=== PATIENT | male | born 1975 | race Caucasian/White ===

== ENCOUNTER 2020-12-20 08:03 | Emergency (ER) | payer OTHER, SELFPAY ==
[2020-12-20 08:12] VITALS: BP 125/80; PULSE 63; RESP 16; TEMP 36.6; O2SAT 100
--- NOTE | 2020-12-20 08:30 | PC.NURSE ---
PT LEFT AT THIS TIME NO PROVIDER TO SEE HIM CURRENTLY.
--- NOTE | 2020-12-20 09:20 | PC.NURSE ---
PT HAS RETURNED TO BE SEEN BY PROVIDER
--- NOTE | 2020-12-20 09:40 | ED.LOWEXIN ---
HPI - Extremity Injury (Lower) General Chief Complaint: Extremity Injury, Lower Stated Complaint: possible gout Source: patient, RN notes reviewed and police History of Present Illness HPI Narrative: This is a 45-year-old male who presented to urgent care today with left lower leg swelling that he has had for approximately . Patient notes that he includes a specific food in his diet which is provided has worn him in the past that it could cause gout. Patient notes that within the 6 weeks the swelling and stiffness has been on and off he notes that he is having in his left foot particularly his left big toe and then migrates to his left knee. He describes the pain as stiffness and occasional sharp pain. Patient will be treated for gout he was also informed that he will need to follow-up with his primary care physician if his condition does not improve to rule out a DVT also to get a uric acid test. The patient denies SOB, CP, palpitation, extremity numbness, lightheadedness, dizziness, constipation, diarrhea, chills, no neurovascular deficiencies ,pulses are palpable full range of motion's to the affected extremity or fever. Related Data Allergies Allergy/AdvReac Type Severity Reaction Status Date / Time No Known Allergies Allergy Verified 12/20/20 08:33 Review of Systems Review of Systems: A 14 organ system Review of Systems was performed and pertinent positives included in the HPI, otherwise remaining ROS is negative. [facility] Family History Family History (Updated 12/20/20 @ 09:44 by GENEVA ChapaP-C) Other Family history non-contributory Exam Narrative: GENERAL: This is a well-nourished, well-developed patient, in no apparent distress. HEAD: normocephalic, atraumatic. EYES: PERRL. Sclera clear/white. Vision is grossly intact. EARS: External ears normal, auditory canals clear and without drainage, TMs normal without perforation. Hearing grossly intact. NOSE: External nose normal with no obvious nasal discharge, nares without redness, no rhinorrhea. THROAT: Mucous membranes moist, posterior pharynx clear. NECK: Neck supple, non-tender without lymphadenopathy, masses or thyromegaly. CARDIOVASCULAR: Regular rate and rhythm without murmurs, gallops, or rubs. RESPIRATORY: Clear to auscultation. Breath sounds equal bilaterally. No wheezes, rales, or rhonchi. GASTROINTESTINAL: Abdomen soft, non-tender, nondistended. Bowel sounds are active. No hepato-splenomegaly, or palpable masses. No guarding. SKIN: warm, intact with no suspicious lesions or rash, good texture and turgor. NEURO: awake, alert, and oriented to person, place and time. There were no obvious focal neurologic abnormalities. Steady gait EXTREMITIES: Left lower extremity edema to the left great toe and knee area with warm, no neurovascular deficiency pulses palpable, full range of motion with pain to that left knee BACK: Nontender without deformity or crepitance. No flank tenderness. Course Course Emergency Course: Patient will be treated for gout, with prednisone and allopurinol. Patient instructed to visit his primary care physician for further testing and if his condition he will need to follow-up with ultrasound to rule out a DVT. Patient has agreed Vital Signs Vital signs: Vital Signs Temperature 97.8 F 12/20/20 08:12 Pulse Rate 63 12/20/20 08:12 Respiratory Rate 16 12/20/20 08:12 Blood Pressure 125/80 12/20/20 08:12 Pulse Oximetry 100 12/20/20 08:12 Temperature 97.8 F 12/20/20 08:12 Pulse Rate 63 12/20/20 08:12 Respiratory Rate 16 12/20/20 08:12 Blood Pressure 125/80 12/20/20 08:12 Pulse Oximetry 100 12/20/20 08:12 MDM - Extremity Injury (Lower) Differential Diagnosis Differential diagnosis: Likely other (Gout versus cellulitis versus DVT) Discharge Plan Discharge Clinical Impression: Gout Qualifiers: Gout site: foot Gout etiology: unspecified cause Chronicity: acute Laterality: left Qualified Code(s): M10.9
== END 2020-12-20 09:40 | disposition home or self-care (01) ==
PROVIDERS: Emergency Provider Nurse Practitioner
DX: M10.9 Gout, unspecified (principal)
CPT/HCPCS: 99213; G0463

== ENCOUNTER 2020-12-30 14:17 | Outpatient (CLI) | payer OTHER, SELFPAY ==
--- NOTE | ~2020-12-30 | XR_ITS ---
XR cervical spine 4-5V 12/30/2020 15:34 Indication: Finger tingling. Neck pain. Procedure: 5 views of the cervical spine Comparison: No prior studies for comparison. Findings: Normal cervical alignment. Vertebral body and disc heights are preserved. No fracture, subl uxation or dislocation. No prevertebral soft tissue abnormality. Odontoid process within normal limit s. Impression: 1: No significant abnormality of the cervical spine. Reviewed, dictated and finalized at location A. H DIAL PRINTER Impression: 1: No significant abnormality of the cervical spine.
--- NOTE | ~2020-12-30 | XR_ITS ---
EXAMINATION: XR knee LT min 4V DATE: 12/30/2020 15:35 INDICATION: Left knee pain. TECHNIQUE: 4 views of left knee were obtained. COMPARISON: None. FINDINGS: Bone alignment is normal. No fracture. There is mild tricompartmental osteoarthritis charac terized by tiny marginal osteophytes. No joint space narrowing. No knee joint effusion. IMPRESSION: 1. Mild left knee osteoarthritis. Reviewed, dictated and finalized at location B. BILITATION CENTER MANAGER
--- NOTE | ~2020-12-30 | XR_ITS ---
EXAMINATION: XR chest 2V 12/30/2020 15:34 INDICATION: History of smoking PROCEDURE: 2 view chest COMPARISON: No prior studies for comparison. FINDINGS: The lungs are clear. The cardiomediastinal silhouette is within normal limits. There are no pleural effusions. There is no pneumothorax suspected. IMPRESSION: 1: NO ACUTE CARDIOPULMONARY DISEASE. Reviewed, dictated and finalized at location A. RAM CLERK
--- NOTE | ~2020-12-30 | US_ITS ---
EXAMINATION: US joint non vasc ltd LT DATE: 12/30/2020 15:17 INDICATION: Posterior left knee pain TECHNIQUE: Multiple grayscale and Doppler ultrasound images of the popliteal fossa of the left knee w ere obtained. COMPARISON: None FINDINGS: 4.1 x 0.7 x 1.2 cm anechoic Levin's cyst at the left popliteal fossa. There is an additional smaller 2.3 x 1.2 x 0.6 cm more cephalad ganglion cyst at the popliteal fossa and typical location deep to th e semimembranosus tendon. No other masses or fluid collections identified. IMPRESSION: 1. Small to moderate-sized Levin's cyst and second smaller more cephalad ganglion cyst at the poplite al fossa. Reviewed, dictated and finalized at location A. IT CONTROLLER IMPRESSION: 1. Small to moderate-sized Levin's cyst and second smaller more cephalad gangli on cyst at the popliteal fossa.
== END 2020-12-30 14:18 | disposition home or self-care (01) ==
LOC: ANHIMG 14:20
PROVIDERS: PCP Emergency Medicine; Visit Provider Emergency Medicine
DX: M25.562 Pain in left knee (principal); R20.2 Paresthesia of skin; M17.12 Unilateral primary osteoarthritis, left knee; M71.22 Synovial cyst of popliteal space [Baker], left knee; M67.462 Ganglion, left knee
CPT/HCPCS: 71046; 72050; 73564; 76882

== ENCOUNTER 2021-01-22 10:59 | Outpatient (CLI) | payer OTHER, SELFPAY ==
--- NOTE | ~2021-01-22 | US_ITS ---
EXAMINATION: US venous doppler [facility] EXAM DATE: 01/22/2021 11:41 INDICATION: Left leg pain. TECHNIQUE: Multiple grayscale, color flow and Doppler images of the left lower extremity deep venous system were obtained and reviewed. There is no prior study for comparison. FINDINGS: The left common femoral, femoral and profunda veins demonstrate normal color flow, respirat ory variation, augmentation and compressibility. Compressibility, color flow confirmed within the le ft popliteal, posterior tibial, peroneal, and greater saphenous veins. IMPRESSION: 1. No left lower extremity deep venous thrombosis. Reviewed, dictated and finalized at location B. IT RELATIONSHIP MANAGER
== END 2021-01-22 11:00 | disposition home or self-care (01) ==
LOC: ANHIMG 11:00
PROVIDERS: PCP Emergency Medicine; Visit Provider Emergency Medicine
DX: M79.662 Pain in left lower leg (principal)
CPT/HCPCS: 93971

== ENCOUNTER 2021-03-05 08:05 | Outpatient (CLI) | payer OTHER, SELFPAY ==
--- NOTE | ~2021-03-05 | MR_ITS ---
EXAMINATION: MR knee LT wo con DATE: 03/05/2021 09:26 INDICATION: Left knee pain. TECHNIQUE: Magnetic resonance imaging (MRI) of the left knee was performed without intravenous contra st. Sequences included axial PD-weighted FS FSE, coronal PD-weighted FSE and PD-weighted FS FSE, sagi ttal PD-weighted FSE, and sagittal T2-weighted FS FSE. COMPARISON: Left knee radiographs 01/20/2021 FINDINGS: Medial compartment: Medial meniscus is normal. Tibial cartilage is normal. There is cartilage surface irregularity of fem oral condyle. Lateral compartment: Lateral meniscus is normal. Tibial cartilage is normal. The femoral cartilage is normal. Patellofemoral compartment: There is deep cartilage fissuring of patellar medial facet. Trochlear cartilage is normal. Ligaments and tendons: Anterior cruciate ligament is normal. There is a partial tear of posterior cruciate ligament characte rized by thickening and increased signal intensity. There is a partial tear of medial collateral liga ment at its proximal attachment. There is edema-like marrow signal intensity in medial femoral condyl e at the attachment of the medial collateral ligament. Lateral collateral ligament complex is normal. Patellar tendon is normal. Fluid: There is a moderate-sized knee joint effusion. There is a small Levin's cyst. There is mild superfici al infrapatellar bursitis. Bones/Other: There are benign bone islands in the distal femur and proximal fibula. IMPRESSION: 1. Moderate chondrosis of patellofemoral compartment and mild chondrosis of medial compartment. 2. Partial tear of medial collateral ligament. 3. Partial tear of posterior cruciate ligament. 4. Moderate-sized knee joint effusion. 5. Small Levin's cyst. Reviewed, dictated and finalized at location A. HT LOSS CONSULTANT IMPRESSION: 1. Moderate chondrosis of patellofemoral compartment and mild chondrosis of med ial compartment. 2. Partial tear of medial collateral ligament. 3. Partial tear of posterior cruciate ligament. 4. Moderate-sized knee joint effusion. 5. Small Levin's cyst.
== END 2021-03-05 08:06 | disposition home or self-care (01) ==
LOC: ANHIMG 08:10
PROVIDERS: PCP Emergency Medicine; Visit Provider Orthopaedic Surgery
DX: M71.22 Synovial cyst of popliteal space [Baker], left knee (principal); M25.462 Effusion, left knee; S83.522A Sprain of posterior cruciate ligament of left knee, initial encounter; S83.412A Sprain of medial collateral ligament of left knee, initial encounter
CPT/HCPCS: 73721

== ENCOUNTER 2024-04-17 12:51 | Outpatient (CLI) | payer OTHER, SELFPAY ==
--- NOTE | ~2024-04-17 | XR_ITS ---
XR abdomen/kub 1V Ordering provider: Mauri Varela MD History: . hematuria . Comparison: None. FINDINGS: BOWEL: Nonobstructive bowel gas pattern. ORGANOMEGALY: None. SIGNIFICANT PATHOLOGIC CALCIFICATIONS: None. OTHER: No free air is seen under the diaphragm. Bilateral hip mild osteoarthritic changes. IMPRESSION: NO ACUTE ABDOMINAL FINDINGS. Reviewed, dictated and finalized at location A.
[2024-04-17 13:25] LABS: Hematocrit 42.6 % (42.0-52.0); Hemoglobin 14.5 g/dL (14.0-18.0); Mean Corpuscular Hemoglobin 30.2 pg (26-34); Mean Corpuscular Volume 88.8 fl (80-100); Mean Platelet Volume 9.7 fl (7.4-10.4); Platelet Count Result 350 k/mm3 (150-375); Red Cell Distribution Width 11.8 % (11.5-14.5); White Blood Count 8.3 K/mm3 (4.5-10.0)
[2024-04-17 13:26] LABS: Add Urine Microscopic? YES; Appearance Urine Clear (Clear); Bilirubin Urine Negative (Negative); Blood Urine Negative (Negative); Color Urine Dark Yellow (Yellow); Glucose Urine UA Negative (Negative); Ketones Urine Trace mg/dL (Negative); Leukocyte Esterase Ur Negative LEU/UL (Negative); Nitrate Urine Negative (Negative); Protein Urine Negative (Negative); Specific Grav Ur 1.027 (1.001-1.035); Urobilinogen Urine 0.2 mg/dL (<2.0); pH Urine 5.5 (5.0-9.0)
[2024-04-17 13:39] LABS: Alanine Aminotransferase 45 U/L (6-50); Albumin Level 4.4 g/dL (3.5-5.1); Alkaline Phosphatase 81 U/L (38-126); Anion Gap 10 mmol/L (4-12); Aspartate Amino Transferase 35 U/L (17-59); Bilirubin,Total 0.6 mg/dL (0.2-1.3); Blood Urea Nitrogen 16 mg/dL (9-20); Calcium 9.6 mg/dL (8.4-10.2); Carbon Dioxide 24 mmol/L (22-30); Chloride 105 mmol/L (98-107); Cholesterol 202 mg/dL (0-200); Estimated Glomerular Filt Rate > 60; Glucose 97 mg/dL (65-110); HDL Direct 33 mg/dL; Potassium 4.4 mmol/L (3.4-5.0); Sodium 139 mmol/L (137-145); Triglycerides 180 mg/dL (<150)
[2024-04-17 13:51] LABS: LDL Cholesterol Direct 114 mg/dL
[2024-04-17 13:59] LABS: Free T4 Free Thyroxine 1.04 ng/dL (0.78-2.19); Vitamin D 25 Hydroxy 22.9 ng/mL
[2024-04-17 14:08] LABS: Prostate Specific Antigen 0.7 ng/mL (< OR = 4.0)
[2024-04-17 14:14] LABS: Erythrocyte Sedimentation Rate 52 mm/hr (0-20)
--- OUTSIDE RECORDS SUMMARY | 2024-04-17 14:48 | XMS_ITS | Referral Summary ---
Author Organization [facility] Address [address] [place] [address] Care Team Providers Care Staple Cutter Name Role Phone Mauri Varela MD Primary Care Provider [phone] Source Comments [facility],non-owned Affiliates and Associated Physician Practices is amultiple site organization consisting of ambulatory clinics and hospital sitesin [place], [place] and [place]. This disclosure is being madepursuant to the Care Everywhere program and may not contain all information available regarding this patient. Last updated 17.[facility] Encounters Date Type Department Care Team Description 03/03/2024 Travel 03/03/2024 9:10 AM RIG MECHANIC Office Visit [facility]ermatology [facility] [facility] [place] [phone] Xiomy Dey MD Actinic keratosis (Primary Dx); Lentigines; Multiple benign melanocytic nevi of upper and lower extremities and trunk; History of squamous cell carcinoma; Acne vulgaris; Other seborrheic dermatitis from Last 3 Months Allergies No known active allergies Medications * Be aware that medications may not be up to date on this document. Alwaysverify current medications with the patient. Medication Sig Dispensed Refills Start Date End Date Status fenofibrate (TRICOR) 145 MG tablet Take 1 (one) tablet by mouth once daily 03/17/2021 Active allopurinol (Zyloprim) 100 MG tablet Take 1 (one) tablet by mouth once daily 04/03/2022 Active clindamycin (Cleocin) 1 % gelIndications:Acne vulgaris Apply daily to face 60 g 5 03/05/2023 Active Additional Information Patient not taking.Reported on 03/03/2024 fluorouracil (Efudex) 5 % creamIndications:Act inic keratosis Apply to affected area twice daily for two weeks. 40 g 03/03/2024 Active Active Problems No known active problems Social History Tobacco Use Types Packs/Day Years Used Date Smoking Tobacco: Former Cigarettes Smokeless Tobacco: Never Tobacco Cessation:Counseling Given: Not Answered Sex and Gender Information Value Date Recorded Sex Assigned at Not on file Gender Identity Not on file Sexual Orientation Not on file Last Filed Vital Signs Vital Sign Reading Time Taken Comments Blood Pressure 118/86 05/16/2021 10:14 AM CDT Pulse 72 05/16/2021 10:14 AM CDT Temperature - - Respiratory Rate - - Oxygen Saturation - - Inhaled Oxygen Concentration - - Weight 104.3 kg (230 lb) 05/16/2021 8:12 AM CDT Height 172.7 cm (5' 8 ) 05/16/2021 8:12 AM CDT Body Mass Index 34.97 05/16/2021 8:12 AM CDT Plan of Treatment Upcoming Encounters Date Type Department Care Team (Late st Contact Info) Description 03/09/2025 9:00 AM RIG MECHANIC Office Visit [facility] - Dermatology [address] [place] [address], [facility] [place] [phone] Xiomy Dey MD [address] [place] [address] [address] [place] [address] Procedures Procedure Name Priority Date/Time Associated Diagnosis Comments [place] DESTROY PREMALIG LESION, 2-14 Routine 03/03/2024 9:46 AM RIG MECHANIC Actinic keratosis [place] DESTROY PREMALIG LESION, 1ST LESION Routine 03/03/2024 9:46 AM RIG MECHANIC Actinic keratosis from Last 3 Months Results * [place] DESTROY PREMALIG LESION, 1ST LESION, [place] DESTROY PREMALIG LESION, 2-14 (03/03/2024 9:46 AM RIG MECHANIC) Xiomy Navarrete MD - 03/03/2024 9:46 AM RIG MECHANIC Mary Jones MD 03/03/2024 9:47 AM Diagnosis and treatment options discussed, addressing the benefit and risks of each. Pt wish to proceed with cryotherapy. Liquid Nitrogen was applied to 4 lesions on (vertex scalp x2, left sideburn x1 right sideburn x1) for 7-10s each. Number of cycles: 1. Wound care reviewed. Mary Jones M.D. [facility] [place] Dermatology Resident Xiomy Dey MD PROCEDURE/RIMMA R SURGICAL ORDERABLES from Last 3 Months Care Teams Staple Cutter Relationship Specialty Start Date End Date Mauri Varela MD [address] [facility] [address] [place] [address] PCP - General 04/11/21
--- OUTSIDE RECORDS SUMMARY | 2024-04-17 14:48 | XMS_ITS | Encounter Summary ---
Author Organization [facility] Address [address] [place] [address] Care Team Providers Care Group Home Worker Name Role Phone Mauri Varela MD Primary Care Provider [phone] Reason for Visit * Reason Onset Date Comments Appointment 02/17/2023 Encounter Details Date Type Department Care Team (Late st Contact Info) Description 02/17/2023 Telephone [facility] - Centralized Scheduling [address] [place] [phone] Xiomy Dey MD [facility] [place] [phone] Appointment Social History Tobacco Use Types Packs/Day Years Used Date Smoking Tobacco: Former Cigarettes Smokeless Tobacco: Never Sex and Gender Information Value Date Recorded Sex Assigned at Not on file Gender Identity Not on file Sexual Orientation Not on file documented as of this encounter Miscellaneous Notes * Telephone Encounter - Dayana Nicolas - 02/19/2023 12:[address] Dey opened a spot for patient, who accepted this appointment: Wednesday03/05/23 at 8:20 TLINE JOINER * Telephone Encounter - Karey Remy - 02/17/2023 8:11 AM CST Patient has a growth on his forehead and is wanting a sooner appointment than his April appointment TLINE JOINER documented in this encounter Plan of Treatment Upcoming Encounters Date Type Department Care Team (Late st Contact Info) Description 03/09/2025 9:00 AM WAISTLINE JOINER Office Visit [facility] - Dermatology [address] [place] [address], [place] [address] Xiomy Dye MD [address] [place] [address] [address] [place] [address] documented as of this encounter Visit Diagnoses Not on filedocumented in this encounter Care Teams Group Home Worker Relationship Specialty Start Date End Date Mauri Varela MD [address] [facility] [address] [place] [address] PCP - General 04/11/21 documented as of this encounter
--- OUTSIDE RECORDS SUMMARY | 2024-04-17 14:48 | XMS_ITS | Patient Health Summary ---
Author Organization [facility] Address [address] [place] [address] Care Team Providers Care Set Painter Name Role Phone Mauri Varela MD Primary Care Provider [phone] Note from [facility],non-owned Affiliates and Associated Physician Practices is amultiple site organization consisting of ambulatory clinics and hospital sitesin [place], [place] and [place]. This disclosure is being madepursuant to the Care Everywhere program and may not contain all information available regarding this patient. Last updated 17.[facility] Allergies No known active allergies Medications * Be aware that medications may not be up to date on this document. Alwaysverify current medications with the patient. * fenofibrate (TRICOR) 145 MG tablet(Started 03/17/2021) Take 1 (one) tablet by mouth once daily * allopurinol (Zyloprim) 100 MG tablet(Started 04/03/2022) Take 1 (one) tablet by mouth once daily * clindamycin (Cleocin) 1 % gel(Started 03/05/2023) Apply daily to face 5 refills by 03/04/2024 * fluorouracil (Efudex) 5 % cream(Started 03/03/2024) Apply to affected area twice daily for two weeks. Active Problems No known active problems Social [...] Mass Index 34.97 05/16/2021 8:12 AM CDT Procedures * VA DESTROY PREMALIG LESION, 2-14(Performed 03/03/2024) Performed for Actinic keratosis * VA DESTROY PREMALIG LESION, 1ST LESION(Performed 03/03/2024) Performed for Actinic keratosis * VA DESTRUCT BENIGN LESION, 1-14(Performed 03/05/2023) Performed for Seborrheic keratoses, inflamed * VA DESTROY PREMALIG LESION, 2-14(Performed 10/23/2022) Performed for Actinic keratosis * VA DESTROY PREMALIG LESION, 1ST LESION(Performed 04/17/2022) Performed for Actinic keratosis * VA DESTROY PREMALIG LESION, 2-14(Performed 04/17/2022) Performed for Actinic keratosis * VA DESTRUCT BENIGN LESION, 1-14(Performed 2021) Performed for Inflamed seborrheic keratosis * VA DESTROY PREMALIG LESION, 1ST LESION(Performed 2021) Performed for Actinic keratosis * VA CHMSRG MOHS MG TQ H/N/H/F/G 1ST STAG 5 BLOC(Performed 05/16/2021) 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 * VA DESTROY PREMALIG LESION, 1ST LESION(Performed 04/16/2021) Performed for Actinic keratosis * VA TANGNTL BX SKIN SINGLE LES(Performed 04/16/2021) Performed for Neoplasm of uncertain behavior of skin * DERMATOPATHOLOGY(Performed 04/16/2021) Performed for Neoplasm of uncertain behavior of skin Results * VA DESTROY PREMALIG LESION, 1ST LESION, VA DESTROY PREMALIG LESION, 2-14 (03/03/2024 9:46 AM PHYSICIAN OFFICE SPECIALIST) Xiomy Navarrete MD - 03/03/2024 9:46 AM PHYSICIAN OFFICE SPECIALIST Mary Jones MD 03/03/2024 9:47 AM Diagnosis and treatment options discussed, addressing the benefit and risks of each. Pt wish to proceed with cryotherapy. Liquid Nitrogen was applied to 4 lesions on (vertex scalp x2, left sideburn x1 right sideburn x1) for 7-10s each. Number of cycles: 1. Wound care reviewed. Mary Jones M.D. [facility] Dermatology Resident Xiomy Dey MD PROCEDURE/RIMMA R SURGICAL ORDERABLES * VA DESTRUCT BENIGN LESION, 1-14 (03/05/2023 9:11 AM PHYSICIAN OFFICE SPECIALIST) Xiomy Navarrete MD - 03/05/2023 9:11 AM PHYSICIAN OFFICE SPECIALIST Yi Dyer MD 03/05/2023 9:11 AM Diagnosis and treatment options discussed, addressing the benefit and risks of each. Pt wish to proceed with cryotherapy. Liquid Nitrogen was applied to 1 lesion on R sabianism for 7-10s each. Number of cycles: 1. Wound care reviewed. Yi Dyer MD [facility] Dermatology Resident Xiomy Dey MD PROCEDURE/RIMMA R SURGICAL ORDERABLES * VA DESTROY PREMALIG LESION, 2-14 (10/23/2022 9:16 AM CDT) Xiomy Navarrete MD - 10/23/2022 9:16 AM CDT Xiomy Dey MD 10/23/2022 11:13 AM Liquid nitrogen was applied for 10-12 seconds to 6 actinic keratosis and the expected blistering or scabbing reaction explained. Do not pick at the area. Patient reminded to expect hypopigmented scars from the procedure. Return if lesion fails to fully resolve. Xiomy Dey MD PROCEDURE/RIMMA R SURGICAL ORDERABLES * VA DESTROY PREMALIG LESION, 2-14, VA DESTROY PREMALIG LESION, 1ST LESION (04/17/2022 9:12 AM PHYSICIAN OFFICE SPECIALIST) Narrative Xiomy Dey MD - 04/17/2022 9:12 AM PHYSICIAN OFFICE SPECIALIST Minoo Castillo MD 04/17/2022 9:12 AM Diagnosis and treatment options discussed. Cryotherapy (Liquid Nitrogen) to 2 lesions on left sabianism for 4-6 seconds each. Number of cycles: 1. Wound care reviewed. Minoo Castillo MD [facility] Dermatology Resident, PGY2 Xiomy Dey MD PROCEDURE/RIMMA R SURGICAL ORDERABLES * VA DESTRUCT BENIGN LESION, 1-14 (2021 9:37 PM CDT) Narrative Xiomy Dey MD - 2021 9:37 PM CDT Xiomy Dey MD 2021 9:38 PM Liquid nitrogen was applied for 10-12 seconds to the skin lesion and the expected blistering or scabbing reaction explained. Do not pick at the area. Patient reminded to expect hypopigmented scars from the procedure. Return if lesion fails to fully resolve. Xiomy Dey MD PROCEDURE/RIMMA R SURGICAL ORDERABLES * VA DESTROY PREMALIG LESION, 1ST LESION (2021 9:36 PM CDT) Xiomy Navarrete MD - 2021 9:36 PM CDT Xiomy Dey MD 2021 9:38 PM Liquid nitrogen was applied for 10-12 seconds to the 1 skin lesion and the expected blistering or scabbing reaction explained. Do not pick at the area. Patient reminded to expect hypopigmented scars from the procedure. Return if lesion fails to fully resolve. 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 No other physician was involved in the cancer removal or pathology interpretation. Assistants: Tez Johnson MD Indications for Mohs Surgery Removal of the patient's tumor is complicated by the following clinical features: Clinical area critical for tissue conservation (Area M: cheeks, forehead, scalp, neck, jawline, pretibial surface), poorly-defined clinical tumor borders. Based on my medical judgement, Mohs surgery is the most appropriate treatment for this cancer compared to other treatments. I discussed alternative treatments to Mohs surgery and specifically discussed the risks and benefits of curettage, excision with permanent sections, and foregoing treatment. The rationale for Mohs was explained to the patient and consent was obtained. The risks, benefits and alternatives to therapy were discussed in detail. Specifically, the risks of infection, scarring, bleeding, prolonged wound healing, incomplete removal, allergy to anesthesia, nerve injury and recurrence were addressed. Prior to the procedure, the treatment site was clearly identified and confirmed by the patient. All components of [facility] Protocol/PAUSE Rule completed. STAGE I: The patient was placed on the operating table. The cancer was identified and outlined. The entire surgical field was prepped with hibiclens. The surgical site was anesthetized using Lidocaine 1% with epinephrine 1:100,000 buffered with sodium bicarbonate 8.4% in a 1:10 ratio.The area of clinically apparent tumor was debulked with a 2 mm curette. The layer of tissue was then surgically excised using a #15 blade and was then transferred onto a specimen sheet maintaining the orientation of the specimen. Hemostasis was obtained using monopolar electrodesiccation. The wound site was then covered with a dressing while the tissue samples were processed for examination. The specimen was oriented, mapped and divided. Each section was then inked and processed in the Mohs lab using the Mohs protocol and submitted for frozen section. The histopathologic sections were reviewed by the surgeon in conjunction with the reference map. Total blocks: 1 Total slides: 3 Frozen sections were examined by the surgeon. No additional tumor was identified. No additional histologic findings appreciated. Cell morphology: N/A. No tumor seen. Pathological pattern: N/A. No tumor seen. Depth of invasion: N/A. No tumor seen. Scar tissue: Not Present Perineural invasion: Not Present Inflammation obscuring possible tumor presence: Not Present [facility] Mohs CLIA # [id number] Mohs laboratory mechanical technician: Faby Pina MD REPAIR: Secondary Intention The patient is status-post Mohs micrographic surgery. The surgical site was examined with attention to normal anatomic and functional relationships. After consideration and discussion of multiple options with the patient, it was determined that healing by secondary intention would offer the best chance for preservation/mosque of all normal anatomic and functional relationships. The patient verbalized understanding and agreed with this plan. It is also understood that should second intention healing be sub-optimal, additional procedures such as scar revision, steroid injection or dermabrasion may be recommended. The open wound was cleaned and a thick layer of vaseline was applied. A pressure dressing consisting of non-adherent gauze, gauze, and hypafix was applied. Wound care was discussed with the patient both orally and in writing. The patient stated understanding and agreement with the course of care. Dr. Eason performed the entire surgery, and documentation used to initiate this operative report. I entered the information in our [employer] DocFlowsheet with the information provided by Dr. Eason on her handwritten, paper format, surgical worksheet, which was then used to initiate the create of this note. Dr. Eason then reviewed and edited the note as needed to complete the note. aMri Fung LPN Dick Eason MD PROCEDURE/MINOR SURG ICAL ORDERABLES * VA DESTROY PREMALIG LESION, 1ST LESION (04/16/2021 11:28 AM PHYSICIAN OFFICE SPECIALIST) Narrative Dick Eason MD - 04/16/2021 11:28 AM PHYSICIAN OFFICE SPECIALIST Jim Neff MD 04/16/2021 11:29 AM Diagnosis and treatment options discussed. Cryotherapy (Liquid Nitrogen) to AK x1 on L sabianism x 6-10 seconds each. Number of cycles: 1. Wound care reviewed. Dick Eason MD PROCEDURE/MINOR SURG ICAL ORDERABLES * VA TANGNTL BX SKIN SINGLE LES (04/16/2021 11:28 AM PHYSICIAN OFFICE SPECIALIST) Narrative Dick Eason MD - 04/16/2021 11:28 AM PHYSICIAN OFFICE SPECIALIST Jim Neff MD 04/16/2021 11:28 AM Risks, benefits and alternatives to shave biopsy were discussed with the patient. Verbal consent was obtained. Encounter Diagnoses Name Primary? Neoplasm of uncertain behavior of skin Yes Actinic keratosis Solar lentiginosis Seborrheic keratosis Location: vertex scalp Skin prep: Alcohol Anesthesia: 1% lidocaine with epinephrine Hemostasis: Aluminum chloride Dressing and wound care discussed. Specimen(s) placed in a patient labeled container and sent to [facility] Dermatopathology. Patient agrees to phone call for results and message if not available. Jim Neff MD Dick Eason MD PROCEDURE/MINOR SURG ICAL ORDERABLES * DERMATOPATHOLOGY (04/16/2021 12:00 AM PHYSICIAN OFFICE SPECIALIST) Case Report Dermatopathology Report Case: [id number] Authorizing Provider: Dick Eason MD Collected: 04/16/2021 12:00 AM Ordering Location: [facility] Received: 04/16/2021 02:05 PM Dermatology Pathologist: Xiomy Dey MD Specimen: Skin, vertex scalp 11:58 AM [facility] DERMATOPATHOLOGY [facility]OR[facility] Final Diagnosis Specimen A. SKIN, vertex scalp: SQUAMOUS CELL CARCINOMA IN SITU, PRESENT AT THE BASE OF THE SPECIMEN (D04.4) (see microscopic description and comment) 11:58 AM [facility] DERMATOPATHOLOGY [facility] Clinical History ISK R/O SCC. 11:58 AM [facility]ERMATOPATHOLOG[facility] Gross Description Specimen A: Received is one formalin filled container labeled with the patient's name and designated vertex scalp. The specimen consists of a shave biopsy measuring [id number], bisected, & [id number]. Jar 0. 11:58 AM [facility] DERMATOPATHOLOGY [facility] Microscopic Description Specimen A. SKIN, vertex scalp: The epidermis shows parakeratosis, full thickness disorderly maturation of keratinocytes, mitoses at different levels, and dyskeratotic cells. The lesion extends to the base of the biopsy. COMMENT: An invasive squamous cell carcinoma cannot be ruled out. 2 11:58 AM [facility] DERMATOPATH[facility] Disclaimer An external and internal positive and negative controls are appropriate for the histochemical, immunohistochemical and immunofluorescence stain(s) in this case (if any), except where stated explicitly. The performance characteristics of the stain(s) cited in this report were developed and its performance characteristic determined by the Dermatopathology Laboratory at [facility], directed by Dr. Anna Ott. These tests need not be, and therefore are not, approved by the [place] Food and Drug Administration. The tests are used for clinical purposes. Billing Codes Specimen Charges Stain Charges 23108 1 2 11:58 AM [facility] DER[facility] Embedded Images 2 11:58 AM [facility]ERMATOP[facility] Pathology/Cytolog y TISSUE SPECIMEN FROM SKIN / Unknown 04/16/2021 04/16/2021 2:05 PM PHYSICIAN OFFICE SPECIALIST Dick Eason MD LAB - PATHOLOGY/CYTO LOGY ORDERABLES DERMATOPATHOLOGY LABORATORY [facility] - Department of Dermatology [facility] Medicine [address] [place] [address], [address] [phone] Care Teams Set Painter Relationship Specialty Start Date End Date Mauri Varela MD [address] [place] [address] PCP - General 04/11/21
--- OUTSIDE RECORDS SUMMARY | 2024-04-17 14:48 | XMS_ITS | Clinical Summary ---
Author Organization [facility] Kaitlynn Zunigacinthya Address [address] [place] [address] Care Team Providers Care Business Development Executive Name Role Phone Unavailable Primary Care Provider Unavailabl e Allergies No known active allergies Medications fenofibrate nanocrystallized (TRICOR) 145 mg tablet Take 145 mg by mouth daily. 2 Active Active Problems Problem Noted Date Diagnosed Date Squamous cell carcinoma in situ 09/08/2021 Family History Medical History Relation Name Comments Cancer Mother Relation Name Status Comments Brother Alive Father Alive Mother Alive Social History Tobacco Use Types Packs/Day Years Used Date Smoking Tobacco: Never Alcohol Use Standard Drinks/Week Comments Yes 0 (1 standard drink = 0.6 oz pur e alcohol) Sex and Gender Information Value Date Recorded Sex Assigned at Not on file Legal Sex Male 11:30 AM CDT Gender Identity Not on file Sexual Orientation Not on file Last Filed Vital Signs Vital Sign Reading Time Taken Comments Blood Pressure 118/80 09/08/2021 10:33 AM CDT Pulse 64 09/08/2021 10:33 AM CDT Temperature 37 C (98.6 F) 09/08/2021 10:33 AM CDT Respiratory Rate - - Oxygen Saturation 96% 09/08/2021 10: 33 AM CDT Inhaled Oxygen Concentration - - Weight 123.9 kg (273 lb 1.6 oz) 022 10:33 AM CDT Height 172.7 cm (5' 8 ) 09/08/2021 10:3 3 AM CDT Body Mass Index 41.52 09/08/2021 10:33 AM CDT Plan of Treatment Health Maintenance Due Date Last Done Comments DTAP/TDAP/TD VACCINES (1 - Tdap) 1996 HEPATITIS B VACCINES (1 of 3 - 19+ 3-dose series) 1996 COLORECTAL SCREENING 2022 Colorectal Cancer Screening 2022 FIT-DNA Q 3 years 2022 FIT/FOBT Q 1 year 2022 Flex Sig/CT Colonography Q 5 years 2022 INFLUENZA VACCINE (#1) 2023 HPV VACCINES Aged Out No longer eligi ble based on patient's age to complete this topic Insurance [employer] CHOICE POS II
--- OUTSIDE RECORDS SUMMARY | 2024-04-17 14:48 | XMS_ITS | Clinical Summary ---
Author Organization [facility] Address [address] [place] [address] Care Team Providers Care Leather Belt Loop Cutter Name Role Phone Mauri Varela MD Primary Care Provider [phone] Source Comments [facility],non-owned Affiliates and Associated Physician Practices is amultiple site organization consisting of ambulatory clinics and hospital sitesin [place], [place], [place] and [place]. This disclosure is being madepursuant to the Care Everywhere program and may not contain all information available regarding this patient. Last updated 17.[facility] Allergies No known active allergies Medications * [...] Active Active Problems No known active problems Encounters Date Type Department Care Team Description 03/03/2024 9:10 AM TRUCK BENCH MECHANIC Office Visit [facility] - Dermatology [address] [place] [phone] Xiomy Dey MD Actinic keratosis (Primary Dx); Lentigines; Multiple benign melanocytic nevi of upper and lower extremities and trunk; History of squamous cell carcinoma; Acne vulgaris; Other seborrheic dermatitis 03/03/2024 Travel from Last 3 Months Family History Medical History Relation Name Comments None Known Brother None Known Father None Known Maternal Aunt None Known Maternal Grandfather None Known Maternal Grandmother None Known Maternal Uncle None Known Mother None Known Other None Known Paternal Aunt None Known Paternal Grandfather None Known Paternal Grandmother None Known Paternal Uncle None Known Sister Asthma Neg Hx CVA Neg Hx Cancer - Breast Neg Hx Cancer - Other Neg Hx Cancer - Skin, Melanoma Neg Hx Cancer - Skin, Non Melanoma Neg Hx Eczema Neg Hx Hemophilia Neg Hx Psoriasis Neg Hx Relation Name Status Comments Brother Father Maternal Aunt Maternal Grandfather Maternal Grandmother Maternal Uncle Mother Other Paternal Aunt Paternal Grandfather Paternal Grandmother Paternal Uncle Sister Social History Tobacco Use Types Packs/Day Years [...] st Contact Info) Description 03/09/2025 9:00 AM TRUCK BENCH MECHANIC Office Visit [facility] - Dermatology [address] [place] [phone] Xiomy Dey MD [address] [place] [phone] Health Maintenance Due Date Last Done Comments COLOGUARD (AGES 45-75) - COL ON CA SCREENING 1977 COLON MONITORING 1977 COLONOSCOPY - COLON CA SCREENING 1977 CT COLONOGRAPHY - COLON CA SCREENING 1977 Colorectal Cancer Screening 1977 FIT - COLON CA SCREENING 1977 FLEX SIG - COLON CA SCREENING 1977 LIPID TESTING 1977 HIV SCREENING 1992 HEPATITIS C SCREENING 10/22/1995 DTAP/TDAP/TD VACCINES (1 - Tdap) 1996 HEPATITIS B VACCINE (1 of 3 - 19+ 3-dose series) 1996 COVID-19 VACCINE (1 - 2023-2 5 season) 2023 INFLUENZA VACCINE (#1) 2023 DEPRESSION SCREENING 02/09/2024 ZOSTER VACCINE (1 of 2) 10/27/2027 HIB VACCINE Aged Out No longer eligi ble based on patient's age to complete this topic HPV VACCINE Aged Out No longer eligi ble based on patient's age to complete this topic MENINGOCOCCAL (Group B) VACCINE Aged Out No longer eligible based on patient's age to complete this topic MENINGOCOCCAL VACCINE Aged Out No dread ashley eligible based on patient's age to complete this topic PNEUMOCOCCAL VACCINE Aged Out No long er eligible based on patient's age to complete this topic Procedures Procedure Name Priority Date/Time Associated Diagnosis Comments UT DESTROY PREMALIG LESION, 2-14 Routine 03/03/2024 9:46 AM TRUCK BENCH MECHANIC Actinic keratosis UT DESTROY PREMALIG LESION, 1ST LESION Routine 03/03/2024 9:46 AM TRUCK BENCH MECHANIC Actinic keratosis from Last 3 Months Results * UT DESTROY PREMALIG LESION, 1ST LESION, UT DESTROY PREMALIG LESION, 2-14 (03/03/2024 9:46 AM TRUCK BENCH MECHANIC) Xiomy Navarrete MD - 03/03/2024 9:46 AM TRUCK BENCH MECHANIC Mary Jones MD 03/03/2024 9:47 AM Diagnosis and treatment options discussed, addressing the benefit and risks of each. Pt wish to proceed with cryotherapy. Liquid Nitrogen was applied to 4 lesions on (vertex scalp x2, left sideburn x1 right sideburn x1) for 7-10s each. Number of cycles: 1. Wound care reviewed. Mary Jones M.D. [facility] Dermatology Resident Xiomy Dey MD PROCEDURE/RIMMA R SURGICAL ORDERABLES from Last 3 Months Care Teams Leather Belt Loop Cutter Relationship Specialty Start Date End Date Mauri Varela MD [address] [place] [address] [address] [place] [address] PCP - General 04/11/21
[2024-04-17 15:02] LABS: Hemoglobin A1C 5.4 % (<5.7)
[2024-04-17 16:58] LABS: Rheumatoid Factor < 12.0 IU/ML (<12)
[2024-04-17 17:32] LABS: Creatinine Urine 362.6 mg/dL; MALB Creatinine Ratio 3.6 mg/g (0-30); Microalbumin Urine Random 13.2 mg/L (0-16.7)
== END 2024-04-17 12:52 | disposition home or self-care (01) ==
LOC: ANHLAB 12:55
PROVIDERS: PCP Emergency Medicine; Visit Provider Emergency Medicine
DX: Z00.00 Encounter for general adult medical examination without abnormal findings (principal); R31.0 Gross hematuria; K21.9 Gastro-esophageal reflux disease without esophagitis; E78.5 Hyperlipidemia, unspecified; I10 Essential (primary) hypertension; C44.90 Unspecified malignant neoplasm of skin, unspecified; M25.562 Pain in left knee; M10.9 Gout, unspecified; R70.0 Elevated erythrocyte sedimentation rate
CPT/HCPCS: 36415; 74018; 80053; 80061; 81001; 82043; 82306; 83036; 84153; 84439; 84443; 84550; 85027; 85652; 86038; 86039; 86430

== ENCOUNTER 2024-05-15 14:29 | Outpatient (CLI) | payer OTHER, SELFPAY ==
--- NOTE | ~2024-05-15 | XR_ITS ---
EXAMINATION: XR ankle RT min 3V, XR foot RT min 3V DATE: 05/15/2024 15:14 INDICATION: Right foot and ankle pain and swelling TECHNIQUE: 1. Anteroposterior, mortise, additional oblique and lateral view of the right ankle were obtained. 2. Dorsoplantar, two oblique and lateral views of the right foot were obtained. COMPARISON: None. FINDINGS: Alignment of the right foot and ankle is normal. No fracture. Normal. 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 S mall heterotopic ossicle projecting along the anterior margin of the tibial plafond. There is increas ed density anterior to the tibiotalar joint line which could be due to ankle joint effusion or synovi tis. Soft tissue swelling about the ankle and extending over the dorsolateral aspect of the foot. IMPRESSION: 1. Soft tissue swelling about the right foot and ankle and ankle joint effusion and/or synovitis. No acute osseous abnormality. Reviewed, dictated and finalized at location A. IMPRESSION: 1. Soft tissue swelling about the right foot and ankle and ankle joint effusion and/or synovitis. No acute osseous abnormality.
--- OUTSIDE RECORDS SUMMARY | 2024-05-15 16:48 | XMS_ITS | Clinical Summary ---
Author Organization [facility] Kaitlynn Zunigacinthya Address [address] [place] [address] Care Team Providers Care Manager Corporate Marketing Name Role Phone Unavailable Primary Care Provider [...]
--- OUTSIDE RECORDS SUMMARY | 2024-05-15 16:48 | XMS_ITS | Encounter Summary ---
Author Organization [facility] Address [address] [place] [address] Care Team Providers Care Fine Arts Instructor Name Role Phone Mauri Varela MD Primary Care Provider [phone] Reason for Visit * Reason Onset Date Comments Appointment 02/17/2023 Encounter Details Date Type Department Care Team (Late st Contact Info) Description 02/17/2023 Telephone [facility] - Centralized Scheduling [address] [place] [phone] Xiomy Dey MD [facility] [place] [phone] Appointment Social History Tobacco Use Types Packs/Day Years Used Date Smoking Tobacco: Former Cigarettes Smokeless Tobacco: Never Sex and Gender Information Value Date Recorded Sex Assigned at Not on file Gender Identity Not on file Sexual Orientation Not on file documented as of this encounter Miscellaneous Notes * Telephone Encounter - Dayana Nicolas - 02/19/2023 12:[address] Dr. Dey opened a spot for patient, who accepted this appointment: Wednesday03/05/23 at 8:20 RANCE CENTER MANAGER * Telephone Encounter - Karey Remy - 02/17/2023 8:11 AM CST Patient has a growth on his forehead and is wanting a sooner appointment than his April appointment RANCE CENTER MANAGER documented in this encounter Plan of Treatment Upcoming Encounters Date Type Department Care Team (Late st Contact Info) Description 03/09/2025 9:00 AM CLEARANCE CENTER MANAGER Office Visit [facility] - Dermatology [address] [place] [address], [place] [phone] Xiomy Dey MD [address] [place] [address] [address] [place] [address] documented as of this encounter Visit Diagnoses Not on filedocumented in this encounter Care Teams Fine Arts Instructor Relationship Specialty Start Date End Date Mauri Varela MD [address] [facility] [address] [address] [place] [address] PCP - General 04/11/21 documented as of this encounter
--- OUTSIDE RECORDS SUMMARY | 2024-05-15 16:48 | XMS_ITS | Clinical Summary ---
Author Organization [facility] Address [address] [place] [address] Care Team Providers Care Outpatient Physical Therapist Assistant Name Role Phone Mauri Varela MD Primary Care Provider [phone] Source Comments [facility],non-owned Affiliates and Associated Physician Practices is amultiple site organization consisting of ambulatory clinics and hospital sitesin [place], [place], [place] and [place]. This disclosure is being madepursuant to the Care Everywhere program and may not contain all information available regarding this patient. Last updated 17.[facility] Allergies No known active allergies Medications * [...] Department Care Team Description 03/03/2024 9:10 AM CLINICAL TRAINER Office Visit [facility] - Dermatology [address] [place] [phone] Xiomy Dey MD Actinic keratosis (Primary Dx); [...] st Contact Info) Description 03/09/2025 9:00 AM CLINICAL TRAINER Office Visit [facility] - Dermatology [address] [place] [phone] Xiomy Dey MD [address] [place] [id number] Health Maintenance Due Date Last Done Comments [...] VACCINE (1 - 2023-2 5 season) 2023 DEPRESSION SCREENING 02/09/2024 INFLUENZA VACCINE (Season Ended) 2024 ZOSTER VACCINE (1 of 2) 10/27/2027 HIB VACCINE Aged Out No longer eligi ble based on patient's age to complete this topic HPV VACCINE Aged Out No longer eligi ble based on patient's age to complete this topic MENINGOCOCCAL (Group B) VACC INE SHARED DECISION-MAKING Aged Out No longer eligibl e based on patient's age to complete this topic MENINGOCOCCAL GROUPS A/C/Y/W VACCINE Aged Out No longer eligible b ased on patient's age to complete this topic PNEUMOCOCCAL VACCINE Aged Out No long er eligible based on patient's age to complete this topic Procedures Procedure Name Priority Date/Time Associated Diagnosis Comments [place] DESTROY PREMALIG LESION, 2-14 Routine 03/03/2024 9:46 AM CLINICAL TRAINER Actinic keratosis [place] DESTROY PREMALIG LESION, 1ST LESION Routine 03/03/2024 9:46 AM CLINICAL TRAINER Actinic keratosis from Last 3 Months Results * [place] DESTROY PREMALIG LESION, 1ST LESION, [place] DESTROY PREMALIG LESION, 2-14 (03/03/2024 9:46 AM CLINICAL TRAINER) Xiomy Navarrete MD - 03/03/2024 9:46 AM CLINICAL TRAINER Mary Jones MD 03/03/2024 9:47 AM Diagnosis and treatment options discussed, addressing the benefit and risks of each. Pt wish to proceed with cryotherapy. Liquid Nitrogen was applied to 4 lesions on (vertex scalp x2, left sideburn x1 right sideburn x1) for 7-10s each. Number of cycles: 1. Wound care reviewed. Mary Jones M.D. [facility] Dermatology Resident Xiomy Dey MD PROCEDURE/RIMMA R SURGICAL ORDERABLES from Last 3 Months Care Teams Outpatient Physical Therapist Assistant Relationship Specialty Start Date End Date Mauri Varela MD [address] [place] [address] PCP - General 04/11/21
== END 2024-05-15 14:30 | disposition home or self-care (01) ==
PROVIDERS: PCP Emergency Medicine; Visit Provider Emergency Medicine
DX: S93.401A Sprain of unspecified ligament of right ankle, initial encounter (principal); X58.XXXA Exposure to other specified factors, initial encounter
CPT/HCPCS: 73610; 73630